=== PATIENT | female | born 1990 | race Caucasian/White ===

== ENCOUNTER 2021-08-30 12:01 | Outpatient (CLI) | payer BC, MEDICAID, SELFPAY ==
--- NOTE | 2021-08-30 12:27 | XRR_ITS ---
PROCEDURE INFORMATION: Exam: XR Abdomen Exam date and time: 08/30/2021 12:27 PM Age: 31 years old Clinical indication: Abdominal pain; Flank; Left; Additional info: Left flank pain TECHNIQUE: Imaging protocol: XR of the abdomen. Views: Frontal supine view of the abdomen. 1 View. COMPARISON: No relevant prior studies available. FINDINGS: Gastrointestinal tract: Normal. No bowel dilation. Organs: No evident renal stones. Bones/joints: Unremarkable. XR/XR KUB [id number] IMPRESSION: No acute findings. Radiation Dose CTDIVOL = (mGy): DLP = (mGy-cm)
== END 2021-08-30 12:02 | disposition home or self-care (01) ==
PROVIDERS: PCP Family Medicine; Visit Provider Family Medicine
DX: R10.9 Unspecified abdominal pain (principal); N39.0 Urinary tract infection, site not specified
CPT/HCPCS: 74018; 81000

== ENCOUNTER 2021-09-01 15:03 | Emergency (ER) | payer BC, MEDICAID, SELFPAY ==
[2021-09-01 15:25] VITALS: BP 133/91; PULSE 86; RESP 16; TEMP 36.7; O2SAT 100; BMI 24.6
--- NOTE | 2021-09-01 15:36 | PC.NURSE ---
URINE CUP PROVIDED TO PT WITH INSTRUCTIONS ON COLLECTION.
[2021-09-01 15:44] LABS: Basophils % 0.4 %; Eosinophils % 0.6 %; Hematocrit 30.1 % (37.0-47.0); Lymphocytes # 0.9 10^3/uL (0.8-4.8); Lymphocytes % 12.7 %; Mean Corpuscular HGB Conc 29.9 g/dL (30.0-36.0); Mean Corpuscular Hemoglobin 21.3 pg (28.0-34.0); Mean Corpuscular Volume 71.2 fl (81-99); Mean Platelet Volume 10.5 fL (7.4-10.4); Monocytes # 0.5 10^3/uL (0.2-0.9); Monocytes % 6.9 %; Neutrophils % 79.1 %; Nucleated Red Blood Cells % 0 %; Platelet Count 251 10^3/cmm (130-400); Red Blood Count 4.23 10^6/uL (4.1-5.3); Red Cell Distribution Width 17.4 % (12.1-15.1); White Blood Count 6.7 10^3/uL (4.0-10.0)
[2021-09-01 16:12] LABS: HCG, Serum Qual Negative (Negative)
[2021-09-01 16:19] LABS: Alanine Aminotransferase 10 U/L (0-33); Albumin Level 4.3 g/dL (3.5-5.2); Alkaline Phosphatase 88 IU/L (35-105); Anion Gap 16.3 (5-19); Aspartate Amino Transferase 15 U/L (0-32); Blood Urea Nitrogen 10 mg/dL (6-20); Calcium 8.5 mg/dL (8.5-10.5); Carbon Dioxide 21 mmol/L (22-29); Chloride 103 mmol/L (98-107); Globulin 2.4 g/dL (1.3-4.6); Glomerular Filtration Rate 47.8 mL/min (90-130); Glucose 99 mg/dL (65-115); Osmolality Calculated 281 mOsm/kg (285-295); Potassium 4.3 mmol/L (3.5-5.1); Sodium 136 mmol/L (136-145); Total Bilirubin 0.9 mg/dL (0.15-1.2); Total Protein 6.7 g/dL (6.6-8.7)
--- NOTE | 2021-09-01 18:17 | CTR_ITS ---
PROCEDURE INFORMATION: Exam: CT Abdomen And Pelvis Without Contrast Exam date and time: 09/01/2021 6:17 PM Age: 31 years old Clinical indication: Abdominal pain; Flank; Other: Bilateral; Prior surgery; Surgery type: , tubal; Additional info: Bilat flank pain, history of renal calculi TECHNIQUE: Imaging protocol: Computed tomography of the abdomen and pelvis without contrast. Radiation optimization: All CT scans at this facility use at least one of these dose optimization techniques: automated exposure control; mA and/or kV adjustment per patient size (includes targeted exams where dose is matched to clinical indication); or iterative reconstruction. COMPARISON: CR (ABDOMEN, ) 08/30/2021 12:31 PM RADIATION DOSE METRICS: Total DLP (mGy-cm): 916.88 FINDINGS: Liver: Normal. No mass. Gallbladder and bile ducts: Normal. No calcified stones. No ductal dilation. Pancreas: Normal. No ductal dilation. Spleen: Normal. No splenomegaly. Adrenal glands: Normal. No mass. Kidneys and ureters: Multiple punctate nonobstructing right kidney stones. Hydroureteronephrosis of the left collecting system which is moderate severity. 4 mm calcified stone in the distal left ureter just proximal to the UVJ. Left perinephric fat stranding and mild left renal edema. Stomach and bowel: Unremarkable. No obstruction. No mucosal thickening. Appendix: No evidence of appendicitis. Intraperitoneal space: Trace pelvic free fluid. Negative for pneumoperitoneum. Vasculature: Unremarkable. No abdominal aortic aneurysm. Lymph nodes: Unremarkable. No enlarged lymph nodes. Urinary bladder: Unremarkable as visualized. Reproductive: Unremarkable as visualized. Bones/joints: Unremarkable. No acute fracture. Soft tissues: Unremarkable. CT/CT kidney stone [id number] IMPRESSION: Left distal ureterolithiasis. Proximal obstructive uropathy changes. Radiation Dose CTDIVOL = (mGy): DLP = 916.88 (mGy-cm)
--- NOTE | 2021-09-01 18:36 | ED_ITS ---
HPI - Nausea/Vomiting/Diarrhea General: Chief complaint: Nausea/Vomiting/Diarrhea Stated complaint: BACK PAIN/N,V Time Seen by Provider: 09/01/21 18:36 History of Present Illness: HPI Narrative: Patient comes in with left flank pain radiating into her groin. Patient reports history of renal calculi. Patient was seen at the walk-in clinic on the and was prescribed antibiotics for urinary tract infection. Patient had a x-ray done at that time that showed no renal calculi. Patient also had a urine test that showed blood in the urine. Patient appears mildly unwell but not toxic. Patient appears in mild to moderate pain. Patient denies any other medical problems or . Review of Systems General: Reports: 10 or more systems reviewed and unremarkable except in HPI and below : Reports: flank pain PFSH ED PFSH: Social History (Updated 08/30/21 @ 11:21 by Renee Emanuel LPN) Smoking and tobacco status: never smoked Physical Exam Const: COMMON NORMALS: no acute distress and patient oriented x3 GENERAL APPEARANCE: cooperative HENMT: COMMON NORMALS: normocephalic and Normal external nose present HEAD & SCALP: normal to inspection and normocephalic NOSE: Normal external nose present MOUTH: Normal oral and palatal mucosa present Eye: GENERAL EYE: appearance normal, both eyes and all related structures Neck/C-Spine: COMMON NORMALS: full ROM Chest: COMMONS NORMALS: normal inspection of the chest Resp: COMMON NORMALS: normal respiratory effort EFFORT & INSPECTION: Yes able to speak in complete sentences Cardio: COMMON NORMALS: regular rate and regular rhythm RATE: regular rate RHYTHM: regular rhythm GI: COMMON NORMALS: Soft to palpation AUSCULTATION: Yes normoactive bowel sounds PALPATION: Yes Soft to palpation and Yes Tenderness to palpation present (GI) Details: LLQ : COMMON NORMALS: Yes no CVA tenderness BLADDER/KIDNEY EXAM: Yes no CVA tenderness Back/Pelvis: COMMON NORMALS: no CVA tenderness and thoracic and lumbar spine normal to inspection Extremity: COMMON NORMALS: normal to inspection Neuro: COMMON NORMALS: patient oriented x3 and moves all extremities Psych: COMMON NORMALS: mental status grossly normal and cooperative Skin: COMMON NORMALS: no rashes or lesions noted GENERAL SKIN EXAM: no rashes or lesions noted Course Vital Signs: Vital signs: Vital Signs Temperature 98.1 F 09/01/21 15:25 Pulse Rate 79 11/30/21 19:29 Respiratory Rate 19 H 09/01/21 20:03 Blood Pressure 131/87 09/01/21 19:29 Pulse Oximetry 100 09/01/21 19:29 MDM - Nausea/Vomiting/Diarrhea MDM Narrative: Medical decision making narrative: Patient comes in today for complaints of left flank pain. Patient reports pain discomfort for the last 4 days. Patient was seen at outside clinic and was treated for urinary tract infection 3 days ago. Patient did have a x-ray done at that time which did not show any renal stone. Patient states that this pain did remind her of a previous kidney stone she has had. On exam patient appears in moderate pain. No significant left renal tenderness. Left lower abdominal tenderness was noted on palpation. Respirations were even lungs were clear to auscultation. Skin was warm and dry. Differential diagnosis includes but not limited to renal calculi, pyelonephritis, UTI. Laboratory values did note some significant anemia with the patient patient does report that she has chronic anemia and low iron. CMP did note a BUN of 21 and a creatinine 1.3. Urinalysis had some red blood cells. CT of the abdomen pelvis noted 4 mm stone in the distal left ureter. Reviewed exam with Dr. Medeiros who recommended patient be treated for her pain and follow-up with urology. Reviewed this with patient who agreed to plan and had good pain control after a total of 6 mg of morphine. Patient was also given Zofran for nausea. Patient was given 1 L of IV fluid due to her nausea and vomiting. Patient tolerated well. Lab Data: Labs: Lab Results 09/01/21 09/01/21 09/01/21 15:34 15:34 15:34 WBC 6.7 10^3/uL 10^3/ uL (4.0-10.0) RBC 4.23 10^6/uL 10^6 /uL (4.1-5.3) Hgb 9.0 g/dL L g/dL (11.5-15.3) Hct 30.1 % L % (37.0-47.0) MCV 71.2 fl L fl (81-99) MCH 21.3 pg L pg (28.0-34.0) MCHC 29.9 g/dL L g/dL (30.0-36.0) RDW 17.4 % H % (12.1-15.1) Plt Count 251 10^3/cmm 10^3 /cmm (130-400) MPV 10.5 fL H fL (7.4-10.4) Neut % (Auto) 79.1 % % Lymph % (Auto) 12.7 % % [place] % (Auto) 6.9 % % Eos % (Auto) 0.6 % % Baso % (Auto) 0.4 % % Neut # (Auto) 5.30 10^3/uL 10^3 /uL (1.8-7.7) Lymph # (Auto) 0.9 10^3/uL 10^3/ uL (0.8-4.8) [place] # (Auto) 0.5 10^3/uL 10^3/ uL (0.2-0.9) Eos # (Auto) 0.0 10^3/uL 10^3/ uL (0.0-0.8) Baso # (Auto) 0.0 10^3/uL 10^3/ uL (0.0-0.1) Nucleated RBC % (a uto) 0 % % Nucleated RBCs # 0.0 /100WBC /100W BC Sodium 136 mmol/L mmol/L (136-145) Potassium 4.3 mmol/L mmol/L (3.5-5.1) Chloride 103 mmol/L mmol/L (98-107) Carbon Dioxide 21 mmol/L L mmol/ L (22-29) Anion Gap 16.3 (5-19) BUN 10 mg/dL mg/dL (6-20) Creatinine 1.3 mg/dL H mg/dL (0.5-0.9) GFR Calculation 47.8 mL/min L mL/ min (90-130) Glucose 99 mg/dL mg/dL (65-115) Calculated Osmolal ity 281 mOsm/kg L mOs m/kg (285-295) Calcium 8.5 mg/dL mg/dL (8.5-10.5) Total Bilirubin 0.9 mg/dL mg/dL (0.15-1.2) AST 15 U/L U/L (0-32) ALT 10 U/L U/L (0-33) Alkaline Phosphata se 88 IU/L IU/L (35-105) Total Protein 6.7 g/dL g/dL (6.6-8.7) Albumin 4.3 g/dL g/dL (3.5-5.2) Globulin 2.4 g/dL g/dL (1.3-4.6) HCG, Qual Negative (Negative) Urine Color Urine Appearance Urine pH Ur Specific Gravit y Urine Protein Urine Glucose (UA) Urine Ketones Urine Blood Urine Nitrate Urine Bilirubin Urine Urobilinogen Ur Leukocyte Heidi ase 09/01/21 18:31 WBC RBC Hgb Hct MCV MCH MCHC RDW Plt Count MPV Neut % (Auto) Lymph % (Auto) [place] % (Auto) Eos % (Auto) Baso % (Auto) Neut # (Auto) Lymph # (Auto) [place] # (Auto) Eos # (Auto) Baso # (Auto) Nucleated RBC % (a uto) Nucleated RBCs # Sodium Potassium Chloride Carbon Dioxide Anion Gap BUN Creatinine GFR Calculation Glucose Calculated Osmolal ity Calcium Total Bilirubin AST ALT Alkaline Phosphata se Total Protein Albumin Globulin HCG, Qual Urine Color Yellow (Yellow) Urine Appearance Sl hazy (CLEAR) Urine pH 5 (5-7) Ur Specific Gravit y 1.020 (1.005-1.030) Urine Protein Neg (Negative) Urine Glucose (UA) Norm (Normal) Urine Ketones 1+ H (Negative) Urine Blood Neg (Negative) Urine Nitrate Negative (Negative) Urine Bilirubin 1+ H (Negative) Urine Urobilinogen Norm mg/dL mg/dL (Negative) Ur Leukocyte Heidi ase Negative (Negative) Discharge Plan Discharge Patient Disposition: Home Clinical Impression: Left ureteral calculus Condition: Stable Prescriptions: New hydrocodone-acetaminophen 5-325 mg tablet 1 tab PO Q6H PRN (Reason: pain) Qty: 14 RF: 0 ondansetron 4 mg tablet,disintegrating 4 mg PO Q8H PRN (Reason: nausea and vomiting) Qty: 10 RF: 0 tamsulosin 0.4 mg capsule 0.4 mg PO DAILY Qty: 10 RF: 0 No Action levofloxacin 750 mg tablet 750 mg PO DAILY 7 Days Qty: 7 RF: 0 Discharge Orders: Discharge ED (Routine); Ordered 09/01/21 Ordered By: Jakub Fernandes Referrals: Bel Ch MD [Primary Care Provider] - Discharge Diet: Usual diet Discharge Activity: Increase activity as tolerated Patient Instructions: Kidney Stones (ED), Opioid Safety Activity Restrictions/Additional Instructions: Home and rest. Drink plenty of water with medication. Activity as tolerated. Strain urine. Follow-up with urologist for further treatment. Monitor for fever greater than 100.4. Stop antibiotic. Return to the ER for high fever or uncontrolled pain. Coding Level of Care Code ED Office Services Manager for Lisbet Fwalissa Exam Comprehensive
[2021-09-01 18:39] LABS: Add Urine Microscopic? NO; Charge for UA Resulting for Rev
[2021-09-01 18:56] LABS: Bilirubin Urine 1+ (Negative); Blood Urine Neg (Negative); Glucose Urine UA Norm (Normal); Ketones Urine 1+ (Negative); Leukocyte Esterase Urine Negative (Negative); Nitrate Urine Negative (Negative); Protein Urine Neg (Negative); Urine Appearance SL Hazy (CLEAR); Urine Color Yellow (Yellow); Urobilinogen Urine Norm (Negative); pH Urine 5 (5-7)
[2021-09-01] MEDS: sodium chloride 0.9% 1,000 ML 999 ML IV (19:11)
[2021-09-01] MEDS: ondansetron 2 mg/ML SDV 2 mL 4 MG IVP (19:12)
[2021-09-01 19:14] VITALS: RESP 18
[2021-09-01] MEDS: morphine 4 mg/mL SDV 1 mL 2 MG IVP (19:14)
[2021-09-01 19:29] VITALS: BP 131/87; PULSE 79; RESP 19; O2SAT 100
[2021-09-01 20:03] VITALS: RESP 19
[2021-09-01] MEDS: morphine 4 mg/mL SDV 1 mL IVP (20:03)
[2021-09-01 20:48] VITALS: BP 128/85; PULSE 83; O2SAT 100
--- NOTE | 2021-09-02 06:25 | DCPLANNER ---
regional construction manager had message to schedule a follow up appointment for patient with Dr. Gage. regional construction manager emailed patients information to Herminio Campos and Mel in the office of Dr. Gage. Patients information will be printed and reviewed. Clinic will call patient with appointment information.
--- NOTE | 2021-09-04 08:44 | DCPLANNER ---
senior logistics manager was contacted by Beth at Dr. Leroy office, stating that an appointment has not been scheduled for patient at this time. Clinic has left multiple messages for patient to call clinic to schedule an appointment.
== END 2021-09-01 20:52 | disposition home or self-care (01) ==
PROVIDERS: Physician Assistant; Emergency Provider Nurse Practitioner Family; PCP Family Medicine
DX: N20.1 Calculus of ureter (principal)
CPT/HCPCS: 36415; 74176; 80053; 81003; 84703; 85025; 96361; 96374; 96375; 96376; 99284; J2270; J2405; J7030